=== PATIENT | female | born 1935 ===

== ENCOUNTER 2020-03-12 22:58 | Emergency (ER) | payer OTHER ==
[~2020-03-12] VITALS: Ht 147.3 cm; Wt 61.2 kg
[~2020-03-12 22:58] MED LIST: FLEXERIL10 MG PO; GABAPENTIN600 MG; SKELAXIN800 MG PO
[2020-03-13] MEDS ORDERED: ULTRACET PO (04:48)
== END 2020-03-13 06:45 | disposition home or self-care (01) ==
LOC: ER 22:58
DX: N39.0 Urinary tract infection, site not specified (principal); K57.90 Diverticulosis of intestine, part unspecified, without perforation or abscess without bleeding; R10.31 Right lower quadrant pain

== ENCOUNTER 2022-07-20 00:19 | Emergency (ER) | payer OTHER ==
[~2022-07-20] VITALS: Ht 160 cm; Wt 59.0 kg
[~2022-07-20 00:19] MED LIST changes: +ULTRACET PO
[2022-07-20] MEDS ORDERED: DOLOGESIC-DF 51 EACH PO (09:08)
[2022-07-20] MEDS ORDERED: TAMS0.4C PO (09:08)
[2022-07-20] MEDS ORDERED: CEPHALEXIN500 MG PO (09:09)
== END 2022-07-20 09:23 ==
LOC: ER 00:19
DX: N20.1 Calculus of ureter (principal); R10.84 Generalized abdominal pain